=== PATIENT | male | born 1935 | race Caucasian/White ===

== ENCOUNTER 2016-06-20 14:07 | Outpatient (CLI) | payer MEDICARE, OTHER | END 2016-06-20 14:08 | disposition home or self-care (01) | DX: I48.91 Unspecified atrial fibrillation (principal) ==

== ENCOUNTER 2016-07-07 12:30 | Outpatient (CLI) | payer MEDICARE, OTHER | END 2016-07-07 12:31 | disposition home or self-care (01) | DX: I48.91 Unspecified atrial fibrillation (principal) ==

== ENCOUNTER 2016-07-21 21:33 | Outpatient (CLI) | payer MEDICARE, OTHER | END 2016-07-21 21:34 | disposition home or self-care (01) | DX: I48.91 Unspecified atrial fibrillation (principal) ==

== ENCOUNTER 2016-08-02 14:16 | Outpatient (CLI) | payer MEDICARE, OTHER | END 2016-08-02 14:17 | disposition home or self-care (01) | DX: I48.91 Unspecified atrial fibrillation (principal) ==

== ENCOUNTER 2016-08-14 07:29 | Outpatient (CLI) | payer MEDICARE, OTHER | END 2016-08-14 07:30 | disposition home or self-care (01) | DX: I48.91 Unspecified atrial fibrillation (principal) ==

== ENCOUNTER 2016-08-16 14:21 | Outpatient (CLI) | payer MEDICARE, OTHER | END 2016-08-16 14:22 | disposition home or self-care (01) | DX: I48.91 Unspecified atrial fibrillation (principal) ==

== ENCOUNTER 2016-08-28 08:32 | Outpatient (CLI) | payer MEDICARE, OTHER | END 2016-08-28 08:33 | disposition home or self-care (01) | DX: I48.91 Unspecified atrial fibrillation (principal); I48.0 Paroxysmal atrial fibrillation ==

== ENCOUNTER 2016-09-01 13:49 | Outpatient (CLI) | payer MEDICARE, OTHER | END 2016-09-01 13:50 | disposition home or self-care (01) | DX: I48.91 Unspecified atrial fibrillation (principal) ==

== ENCOUNTER 2016-09-06 10:07 | Outpatient (CLI) | payer MEDICARE, OTHER | END 2016-09-06 10:08 | disposition home or self-care (01) | DX: I48.91 Unspecified atrial fibrillation (principal) ==

== ENCOUNTER 2016-10-06 14:41 | Outpatient (CLI) | payer MEDICARE, OTHER | END 2016-10-06 14:42 | disposition home or self-care (01) | DX: I48.91 Unspecified atrial fibrillation (principal) ==

== ENCOUNTER 2016-10-27 08:18 | Outpatient (CLI) | payer MEDICARE, OTHER | END 2016-10-27 08:19 | disposition home or self-care (01) | LOC: LAB.F 08:18 | PROVIDERS: ATTEND Pharmacist Pharmacist Clinician (PhC)/ Clinical Pharmacy Specialist | DX: I48.91 Unspecified atrial fibrillation (principal) | CPT/HCPCS: 85610 ==

== ENCOUNTER 2016-11-08 09:43 | Outpatient (CLI) | payer MEDICARE, OTHER | END 2016-11-08 09:44 | disposition home or self-care (01) | LOC: LAB.F 09:43 | PROVIDERS: ATTEND Pharmacist Pharmacist Clinician (PhC)/ Clinical Pharmacy Specialist | DX: I48.91 Unspecified atrial fibrillation (principal) | CPT/HCPCS: 85610 ==

== ENCOUNTER 2016-11-21 09:16 | Outpatient (CLI) | payer MEDICARE, OTHER | END 2016-11-21 09:17 | disposition home or self-care (01) | LOC: LAB.F 09:16 | PROVIDERS: ATTEND Pharmacist Pharmacist Clinician (PhC)/ Clinical Pharmacy Specialist | DX: I48.91 Unspecified atrial fibrillation (principal) | CPT/HCPCS: 85610 ==

== ENCOUNTER 2016-12-07 10:06 | Outpatient (CLI) | payer MEDICARE, OTHER | END 2016-12-07 10:07 | disposition home or self-care (01) | LOC: LAB.F 10:06 | PROVIDERS: ATTEND Pharmacist Pharmacist Clinician (PhC)/ Clinical Pharmacy Specialist | DX: I48.91 Unspecified atrial fibrillation (principal) | CPT/HCPCS: 85610 ==

== ENCOUNTER 2016-12-22 08:33 | Outpatient (CLI) | payer MEDICARE, OTHER | END 2016-12-22 08:34 | disposition home or self-care (01) | LOC: LAB.F 08:33 | PROVIDERS: ATTEND Pharmacist Pharmacist Clinician (PhC)/ Clinical Pharmacy Specialist | DX: I48.91 Unspecified atrial fibrillation (principal) | CPT/HCPCS: 85610 ==

== ENCOUNTER → 2017-01-10 | Outpatient (CLI) | payer MEDICARE, OTHER | LOC: LAB.F 08:00 | PROVIDERS: ATTEND Pharmacist Pharmacist Clinician (PhC)/ Clinical Pharmacy Specialist | DX: I48.91 Unspecified atrial fibrillation (principal) | CPT/HCPCS: 85610 ==

== ENCOUNTER 2017-02-21 14:38 | Outpatient (CLI) | payer MEDICARE, OTHER | END 2017-02-21 14:39 | disposition home or self-care (01) | LOC: LAB.F 14:38 | PROVIDERS: ATTEND Pharmacist Pharmacist Clinician (PhC)/ Clinical Pharmacy Specialist | DX: I48.91 Unspecified atrial fibrillation (principal) | CPT/HCPCS: 85610 ==

== ENCOUNTER 2017-03-08 07:30 | Outpatient (CLI) | payer MEDICARE, OTHER | END 2017-03-08 07:31 | disposition home or self-care (01) | LOC: LAB.F 07:30 | PROVIDERS: ATTEND Pharmacist Pharmacist Clinician (PhC)/ Clinical Pharmacy Specialist | DX: I48.91 Unspecified atrial fibrillation (principal) | CPT/HCPCS: 85610 ==

== ENCOUNTER 2017-03-23 09:48 | Outpatient (CLI) | payer MEDICARE, OTHER | END 2017-03-23 09:49 | disposition home or self-care (01) | LOC: LAB.F 09:48 | PROVIDERS: ATTEND Pharmacist Pharmacist Clinician (PhC)/ Clinical Pharmacy Specialist | DX: I48.91 Unspecified atrial fibrillation (principal) | CPT/HCPCS: 85610 ==

== ENCOUNTER 2017-04-23 14:59 | Outpatient (CLI) | payer MEDICARE, OTHER | END 2017-04-23 15:00 | disposition home or self-care (01) | LOC: LAB.F 14:59 | PROVIDERS: ATTEND Pharmacist Pharmacist Clinician (PhC)/ Clinical Pharmacy Specialist | DX: I48.91 Unspecified atrial fibrillation (principal) | CPT/HCPCS: 85610 ==

== ENCOUNTER 2017-05-14 14:32 | Outpatient (CLI) | payer MEDICARE, OTHER | END 2017-05-14 14:33 | disposition home or self-care (01) | LOC: LAB.F 14:32 | PROVIDERS: ATTEND Pharmacist Pharmacist Clinician (PhC)/ Clinical Pharmacy Specialist | DX: I48.91 Unspecified atrial fibrillation (principal) | CPT/HCPCS: 85610 ==

== ENCOUNTER 2017-05-29 14:43 | Outpatient (CLI) | payer MEDICARE, OTHER | END 2017-05-29 14:44 | disposition home or self-care (01) | LOC: LAB.F 14:43 | PROVIDERS: ATTEND Pharmacist Pharmacist Clinician (PhC)/ Clinical Pharmacy Specialist | DX: I48.91 Unspecified atrial fibrillation (principal) | CPT/HCPCS: 85610 ==

== ENCOUNTER 2017-06-14 15:28 | Outpatient (CLI) | payer MEDICARE, OTHER | END 2017-06-14 15:29 | disposition home or self-care (01) | LOC: LAB.F 15:28 | PROVIDERS: ATTEND Pharmacist Pharmacist Clinician (PhC)/ Clinical Pharmacy Specialist | DX: I48.91 Unspecified atrial fibrillation (principal) | CPT/HCPCS: 85610 ==

== ENCOUNTER 2017-06-26 11:13 | Outpatient (CLI) | payer MEDICARE, OTHER | END 2017-06-26 11:14 | disposition home or self-care (01) | LOC: LAB.F 11:13 | PROVIDERS: ATTEND Nurse Practitioner | DX: I48.91 Unspecified atrial fibrillation (principal) | CPT/HCPCS: 85610 ==

== ENCOUNTER 2017-07-24 08:00 | Outpatient (CLI) | payer MEDICARE, OTHER | END 2017-07-24 08:01 | disposition home or self-care (01) | LOC: LAB.F 08:00 | PROVIDERS: ATTEND Pharmacist Pharmacist Clinician (PhC)/ Clinical Pharmacy Specialist | DX: I48.91 Unspecified atrial fibrillation (principal) | CPT/HCPCS: 85610 ==

== ENCOUNTER 2017-08-23 14:44 | Outpatient (CLI) | payer MEDICARE, OTHER ==
[2017-08-23 17:54] LABS: T4 (THYROXINE) 7.02 ug/dL (6.09-12.23)
[2017-08-23 17:58] LABS: THYROID STIMULATING HORMONE 0.54 uIU/mL (0.34-5.60)
[2017-08-23 18:03] LABS: FREE T4 (FREE THYROXINE) 1.2 ng/dL (0.58-1.64)
== END 2017-08-23 14:45 | disposition home or self-care (01) ==
LOC: LAB.F 14:44
PROVIDERS: ATTEND Nurse Practitioner Family
DX: R53.83 Other fatigue (principal)
CPT/HCPCS: 36415; 84436; 84439; 84443; 84481; 84482; 86376; 86800

== ENCOUNTER 2017-09-05 14:34 | Outpatient (CLI) | payer MEDICARE, OTHER | END 2017-09-05 14:35 | disposition home or self-care (01) | LOC: LAB.F 14:34 | PROVIDERS: ATTEND Pharmacist Pharmacist Clinician (PhC)/ Clinical Pharmacy Specialist | DX: I48.91 Unspecified atrial fibrillation (principal) | CPT/HCPCS: 85610 ==

== ENCOUNTER 2017-10-04 08:00 | Outpatient (CLI) | payer MEDICARE, OTHER | END 2017-10-04 08:01 | disposition home or self-care (01) | LOC: LAB.F 08:00 | PROVIDERS: ATTEND Pharmacist Pharmacist Clinician (PhC)/ Clinical Pharmacy Specialist | DX: I48.91 Unspecified atrial fibrillation (principal) | CPT/HCPCS: 85610 ==

== ENCOUNTER 2017-11-01 08:00 | Outpatient (CLI) | payer MEDICARE, OTHER | END 2017-11-01 08:01 | disposition home or self-care (01) | LOC: LAB.F 08:00 | PROVIDERS: ATTEND Pharmacist Pharmacist Clinician (PhC)/ Clinical Pharmacy Specialist | DX: I48.91 Unspecified atrial fibrillation (principal) | CPT/HCPCS: 85610 ==

== ENCOUNTER 2017-11-29 08:00 | Outpatient (CLI) | payer MEDICARE, OTHER | END 2017-11-29 08:01 | disposition home or self-care (01) | LOC: LAB.F 08:00 | PROVIDERS: ATTEND Pharmacist Pharmacist Clinician (PhC)/ Clinical Pharmacy Specialist | DX: I48.91 Unspecified atrial fibrillation (principal) | CPT/HCPCS: 85610 ==

== ENCOUNTER 2017-12-31 13:18 | Outpatient (CLI) | payer MEDICARE, OTHER | END 2017-12-31 13:19 | disposition home or self-care (01) | LOC: LAB.F 13:18 | PROVIDERS: ATTEND Pharmacist Pharmacist Clinician (PhC)/ Clinical Pharmacy Specialist | DX: I48.91 Unspecified atrial fibrillation (principal) | CPT/HCPCS: 85610 ==

== ENCOUNTER 2018-01-29 15:37 | Outpatient (CLI) | payer MEDICARE, OTHER | END 2018-01-29 15:38 | LOC: LAB.F 15:37 | PROVIDERS: ATTEND Pharmacist Pharmacist Clinician (PhC)/ Clinical Pharmacy Specialist | DX: I48.91 Unspecified atrial fibrillation (principal) | CPT/HCPCS: 85610 ==

== ENCOUNTER 2018-03-07 13:25 | Outpatient (CLI) | payer MEDICARE, OTHER | END 2018-03-07 13:26 | disposition home or self-care (01) | LOC: LAB.F 13:25 | PROVIDERS: ATTEND Pharmacist Pharmacist Clinician (PhC)/ Clinical Pharmacy Specialist | DX: I48.91 Unspecified atrial fibrillation (principal) | CPT/HCPCS: 85610 ==

== ENCOUNTER 2018-03-29 11:08 | Outpatient (CLI) | payer MEDICARE, OTHER | END 2018-03-29 11:09 | disposition home or self-care (01) | LOC: LAB.F 11:08 | PROVIDERS: ATTEND Pharmacist Pharmacist Clinician (PhC)/ Clinical Pharmacy Specialist | DX: I48.91 Unspecified atrial fibrillation (principal) | CPT/HCPCS: 85610 ==

== ENCOUNTER 2018-04-19 11:04 | Outpatient (CLI) | payer MEDICARE, OTHER | END 2018-04-19 11:05 | disposition home or self-care (01) | LOC: LAB.F 11:04 | PROVIDERS: ATTEND Pharmacist Pharmacist Clinician (PhC)/ Clinical Pharmacy Specialist | DX: I48.91 Unspecified atrial fibrillation (principal) | CPT/HCPCS: 85610 ==

== ENCOUNTER 2018-05-22 14:17 | Outpatient (CLI) | payer MEDICARE, OTHER | END 2018-05-22 14:18 | disposition home or self-care (01) | LOC: LAB.F 14:17 | PROVIDERS: ATTEND Pharmacist Pharmacist Clinician (PhC)/ Clinical Pharmacy Specialist | DX: I48.91 Unspecified atrial fibrillation (principal) | CPT/HCPCS: 85610 ==

== ENCOUNTER 2018-07-04 12:22 | Outpatient (CLI) | payer MEDICARE, OTHER | END 2018-07-04 12:23 | disposition home or self-care (01) | LOC: LAB.F 12:22 | PROVIDERS: ATTEND Pharmacist Pharmacist Clinician (PhC)/ Clinical Pharmacy Specialist | DX: I48.91 Unspecified atrial fibrillation (principal) | CPT/HCPCS: 85610 ==

== ENCOUNTER 2018-08-26 11:03 | Outpatient (CLI) | payer MEDICARE, OTHER | END 2018-08-26 11:04 | disposition home or self-care (01) | LOC: LAB.F 11:03 | PROVIDERS: ATTEND Pharmacist Pharmacist Clinician (PhC)/ Clinical Pharmacy Specialist | DX: I48.91 Unspecified atrial fibrillation (principal) | CPT/HCPCS: 85610 ==

== ENCOUNTER 2018-09-10 14:39 | Outpatient (CLI) | payer MEDICARE, OTHER | END 2018-09-10 14:40 | disposition home or self-care (01) | LOC: LAB.F 14:39 | PROVIDERS: ATTEND Pharmacist Pharmacist Clinician (PhC)/ Clinical Pharmacy Specialist | DX: I48.91 Unspecified atrial fibrillation (principal) | CPT/HCPCS: 85610 ==

== ENCOUNTER 2018-10-03 09:57 | Outpatient (CLI) | payer MEDICARE, OTHER | END 2018-10-03 09:58 | disposition home or self-care (01) | LOC: LAB.F 09:57 | PROVIDERS: ATTEND Pharmacist Pharmacist Clinician (PhC)/ Clinical Pharmacy Specialist | DX: I48.91 Unspecified atrial fibrillation (principal) | CPT/HCPCS: 85610 ==

== ENCOUNTER 2018-11-01 08:58 | Outpatient (CLI) | payer MEDICARE, OTHER | END 2018-11-01 08:59 | disposition home or self-care (01) | LOC: LAB.F 08:58 | PROVIDERS: ATTEND Pharmacist Pharmacist Clinician (PhC)/ Clinical Pharmacy Specialist | DX: I48.91 Unspecified atrial fibrillation (principal) | CPT/HCPCS: 85610 ==

== ENCOUNTER 2018-11-21 08:00 | Outpatient (CLI) | payer MEDICARE, OTHER | END 2018-11-21 23:59 | disposition home or self-care (01) | LOC: LAB.F 08:00 | PROVIDERS: ATTEND Pharmacist Pharmacist Clinician (PhC)/ Clinical Pharmacy Specialist | DX: I48.91 Unspecified atrial fibrillation (principal) | CPT/HCPCS: 85610 ==

== ENCOUNTER 2018-12-20 10:15 | Outpatient (CLI) | payer MEDICARE, OTHER | END 2018-12-20 10:16 | disposition home or self-care (01) | LOC: LAB.S 10:15 | PROVIDERS: ATTEND Pharmacist Pharmacist Clinician (PhC)/ Clinical Pharmacy Specialist | DX: I48.91 Unspecified atrial fibrillation (principal) | CPT/HCPCS: 85610 ==

== ENCOUNTER 2019-01-17 13:49 | Outpatient (CLI) | payer MEDICARE, OTHER | END 2019-01-17 13:50 | disposition home or self-care (01) | LOC: LAB.S 13:49 | PROVIDERS: ATTEND Pharmacist Pharmacist Clinician (PhC)/ Clinical Pharmacy Specialist | DX: I48.91 Unspecified atrial fibrillation (principal) | CPT/HCPCS: 85610 ==

== ENCOUNTER 2019-02-06 07:31 | Outpatient (CLI) | payer MEDICARE, OTHER ==
[2019-02-06 14:35] LABS: ALBUMIN 4.4 g/dL (3.2-5.5); ALBUMIN/GLOBULIN RATIO 1.7 (1.0-2.2); ALKALINE PHOSPHATASE 59 IU/L (42-121); ALT ALANINE AMINOTRANSFERASE 11 IU/L (10-60); AST ASPARTATE AMINOTRANSFERASE 20 IU/L (10-42); BUN - BLOOD UREA NITROGEN 25 mg/dL (6-20); CALCIUM 9.8 mg/dL (8.5-10.3); CARBON DIOXIDE - CO2 28 mmol/L (21-32); CHLORIDE 101 mmol/L (101-111); CHOL/HDL RATIO 4.1 (<5.0); CHOLESTEROL 205 mg/dL; GFR - MDRD 71 (>89); GLUCOSE 176 mg/dL (70-100); HDL CHOLESTEROL 50 mg/dL; LDL CHOLESTEROL,CALCULATED 136 mg/dL; LDL/HDL RATIO 2.7 (<3.6); SODIUM 138 mmol/L (135-145); VLDL CHOLESTEROL 19 mg/dL
== END 2019-02-06 07:32 | disposition home or self-care (01) ==
LOC: LAB.S 07:31
PROVIDERS: ATTEND Internal Medicine
DX: E78.5 Hyperlipidemia, unspecified (principal)
CPT/HCPCS: 36415; 80053; 80061; 83721

== ENCOUNTER 2019-02-25 11:56 | Outpatient (CLI) | payer MEDICARE, OTHER | END 2019-02-25 11:57 | disposition home or self-care (01) | LOC: LAB.S 11:56 | PROVIDERS: ATTEND Pharmacist Pharmacist Clinician (PhC)/ Clinical Pharmacy Specialist | DX: I48.91 Unspecified atrial fibrillation (principal) | CPT/HCPCS: 85610 ==

== ENCOUNTER 2019-04-09 15:35 | Outpatient (CLI) | payer MEDICARE, OTHER | END 2019-04-09 15:36 | disposition home or self-care (01) | LOC: LAB.S 15:35 | PROVIDERS: ATTEND Pharmacist Pharmacist Clinician (PhC)/ Clinical Pharmacy Specialist | DX: I48.91 Unspecified atrial fibrillation (principal) | CPT/HCPCS: 85610 ==

== ENCOUNTER 2019-06-18 12:51 | Emergency (ER) | payer MEDICARE, OTHER ==
--- NOTE | 2019-06-18 13:02 | ED Physician Documentation ---
PD HPI HEENT - Stated complaint Stated Complaint: NOSE BLEED - History obtained from History obtained from: Patient - History of Present Illness Timing - onset: How many hours ago (4), Today Timing - duration: Hours (4) Timing - details: Abrupt onset (he denies recent uri nor injury of nose. Sneezed this morning and had onset of nosebleed left nostril.), Still present (despite pinching nose at home) Location: Nose Improves: Other (lessened with pinching nose but still some dribble and then bleeds with release of pressure.) Associated symptoms: No: Fever, Congestion, Swollen nodes, Cough Similar symptoms before: No diagnosis (he says will have brief bleeding of nose with sneezing nor blowing, but would stop in few minutes with pinching. No prolonged bleeding like this.) Recently seen: Not recently seen (last INR was about 1 1/2 months ago) Review of Systems Constitutional: denies: Fever Nose: denies: Rhinorrhea / runny nose, Congestion Throat: denies: Sore throat Respiratory: denies: Cough Endocrine: reports: Easy bruising / bleeding. denies: Weight loss PD PAST MEDICAL HISTORY - Past Medical History Cardiovascular: Hypertension, High cholesterol, Atrial fibrillation - Past Surgical History Past Surgical History: Yes General: Appendectomy Cardiovascular: Coronary stent - Present Medications Home Medications: Ambulatory Orders Medication Instructions Recorded Confirmed Aspirin 81 mg PO 07/16/13 04/05/15 Atorvastatin [Lipitor] 20 DAILY 07/16/13 04/05/15 Hydrochlorothiazide 12.5 mg PO DAILY 07/16/13 04/05/15 Metoprolol Tartrate [Lopressor] 25 mg PO DAILY 07/16/13 04/05/15 Ramipril 10 mg PO BID 07/16/13 04/05/15 Metformin HCl 500 mg PO BID 04/05/15 04/05/15 Warfarin Sodium 04/05/15 04/05/15 - Allergies Allergies/Adverse Reactions: Allergies Allergy/AdvReac Type Severity Reaction Status Date / Time No Known Drug Allergies Allergy Verified 07/16/13 10:07 - Social History Does the pt smoke?: No Smoking Status: Never smoker Does the pt have substance abuse?: No PD ED PE NORMAL - Vitals Vital signs reviewed: Yes - General General: Alert and oriented X 3, Well developed/nourished, Other (pinching nose but having dribble blood left nostril ) - HEENT HEENT: Moist mucous membranes, Pharynx benign, Other (left nostril with dribbling blood, with bleeding source mid anterior medial wall. ) - Neck Neck: Supple, no meningeal sign, No adenopathy - Cardiac Cardiac: RRR, No murmur - Respiratory Respiratory: Clear bilaterally - Abdomen Abdomen: Soft, Non tender - Derm Derm: Normal color, Warm and dry - Neuro Neuro: Alert and oriented X 3, No motor deficit, Normal speech Results - Vitals Vitals: Vital Signs - 24 hr 06/18/19 06/18/19 12:55 13:12 Temperature 36.9 C 36.7 C Heart Rate 97 106 H Respiratory 18 18 Rate Blood Pressure 163/93 H 134/110 H O2 Saturation 100 97 Oxygen O2 Source Room air - Labs Labs: Laboratory Tests 06/18/19 06/18/19 06/18/19 13:25 13:25 13:25 WBC 9.2 RBC 4.15 L Hgb 12.6 L Hct 38.4 L MCV 92.5 MCH 30.4 MCHC 32.8 RDW 12.5 Plt Count 292 MPV 9.4 Neut # (Auto) 7.0 H Lymph # (Auto) 1.1 L [place] # (Auto) 0.8 Eos # (Auto) 0.1 Baso # (Auto) 0.1 Absolute Nucleated RBC 0.00 Nucleated RBC % 0.0 PT 65.7 H INR 6.4 H* Sodium 137 Potassium 4.1 Chloride 101 Carbon Dioxide 26 Anion Gap 10.0 BUN 29 H Creatinine 1.0 Estimated GFR (MDRD) 71 L Glucose 272 H Calcium 10.0 Magnesium 1.5 L Total Bilirubin 1.0 AST 26 ALT 24 Alkaline Phosphatase 65 Total Protein 7.3 Albumin 4.5 Globulin 2.8 Albumin/Globulin Ratio 1.6 Lipase 28 Procedures - Epistaxis Site: Left, Anterior Preparation: Clots removed, Afrin, Lidocaine, Clamp / pressure applied, Other (TXA) Treatment: Silver Nitrate, Packing inserted Other: Observed - no bleeding, Pt tolerated well, O2 sat WNL. No: Antibiotics prescribed PD MEDICAL DECISION MAKING - ED course Complexity details: reviewed results, considered differential, d/w patient Departure - Departure Disposition: 01 Home, Self Care Clinical Impression: Left-sided nosebleed, FPC (current) use of anticoagulants, Supratherapeutic international normalized ratio (INR) Condition: Stable Record reviewed to determine appropriate education?: Yes Instructions: ED Nasal Packing Anterior Removable Follow-Up: Wilfredo Hawk MD [Primary Care Provider] - Comments: Leave the packing in the left nostril for 2 days if possible. Return in 2 days for recheck and packing removal and a recheck of your INR. Your INR/Coumadin level was overly elevated at 6. Hold it today and tomorrow. We will recheck it in 2 days. Today every few hours, spray a couple of sprays of the Afrin spray onto the foam packing to re-saturated it. Pinch her nose if you have some bleeding. Return if consistent bleeding. Discharge Date/Time: 06/18/19 15:13
[2019-06-18] MEDS ORDERED: SODIUM CHLORIDE 0.9% 500 ML IV ONE (13:11)
[2019-06-18] MEDS ORDERED: OXYMETAZOLINE HCL 100 SPRAYS BOTTLE NAS STA (13:12)
[2019-06-18] MEDS ORDERED: TRANEXAMIC ACID 1,000 MG/10 ML VIAL NAS STA (13:12)
[2019-06-18 13:43] LABS: BASOPHILS # (AUTO) 0.1 10^3/uL (0.0-0.1); BASOPHILS % (AUTO) 0.5 %; EOSINOPHILS # (AUTO) 0.1 10^3/uL (0.0-0.7); EOSINOPHILS % (AUTO) 1.1 %; HGB - HEMOGLOBIN 12.6 g/dL (14.0-18.0); LYMPHOCYTES # (AUTO) 1.1 10^3/uL (1.5-3.5); LYMPHOCYTES % (AUTO) 11.9 %; MEAN CORPUSCULAR HEMOGLOBIN 30.4 pg (27.0-31.0); MEAN CORPUSCULAR HGB CONC 32.8 g/dL (32.0-36.0); MEAN CORPUSCULAR VOLUME 92.5 fL (80.0-94.0); MEAN PLATELET VOLUME 9.4 fL (7.4-11.4); MONOCYTES # (AUTO) 0.8 10^3/uL (0.0-1.0); MONOCYTES % (AUTO) 9.1 %; NEUTROPHILS % (AUTO) 76.6 %; PLT - PLATELET COUNT 292 10^3/uL (130-450); RED BLOOD COUNT 4.15 10^6/uL (4.70-6.10); RED CELL DISTRIBUTION WIDTH 12.5 % (12.0-15.0); WHITE BLOOD COUNT 9.2 x10^3/uL (4.8-10.8)
[2019-06-18 14:01] LABS: INR 6.4 (0.8-1.2); PT - PROTHROMBIN TIME 65.7 secs (9.9-12.6)
[2019-06-18 14:03] LABS: ALBUMIN 4.5 g/dL (3.2-5.5); ALBUMIN/GLOBULIN RATIO 1.6 (1.0-2.2); MAGNESIUM 1.5 mg/dL (1.7-2.8); TOTAL PROTEIN 7.3 g/dL (6.7-8.2)
[2019-06-18] MEDS ORDERED: CHERRY SYRUP 10 ML UDC PO ONE (14:03)
[2019-06-18] MEDS ORDERED: PHYTONADIONE 10 MG/ML AMP PO ONE (14:03)
[2019-06-18 14:59] VITALS: BP 134/110
== END 2019-06-18 15:13 | disposition home or self-care (01) ==
LOC: ED 12:51
DX: R04.0 Epistaxis (principal); R79.1 Abnormal coagulation profile; Z79.01 Long term (current) use of anticoagulants; Z79.82 Long term (current) use of aspirin; I48.91 Unspecified atrial fibrillation; I10 Essential (primary) hypertension
CPT/HCPCS: 30901; 36415; 80053; 83690; 83735; 85025; 85610; 96360; 99283; 99284; A9270

== ENCOUNTER 2019-06-19 14:38 | Outpatient (CLI) | payer MEDICARE, OTHER | END 2019-06-19 14:39 | disposition home or self-care (01) | LOC: LAB.S 14:38 | PROVIDERS: ATTEND Pharmacist Pharmacist Clinician (PhC)/ Clinical Pharmacy Specialist | DX: I48.91 Unspecified atrial fibrillation (principal) | CPT/HCPCS: 85610 ==

== ENCOUNTER 2019-06-20 09:57 | Emergency (ER) | payer MEDICARE, OTHER ==
[2019-06-20 10:12] VITALS: BP 138/77
--- NOTE | 2019-06-20 11:38 | ED Physician Documentation ---
History of Present Illness - Stated complaint Stated Complaint: ED FOLLOW UP - Chief complaint Chief Complaint: Heent - History obtained from History obtained from: Patient, Family - History of Present Illness Timing: How many days ago (2) - Additonal information Additional information: 84-year-old male was seen in the emergency department 2 days ago with an INR of 6.4 and a bloody nose. He was given a dose of vitamin K and he has discontinued his Coumadin he did take a dose last night.He has no complaints as far as his nose bleeding he is here for removal of the packing. Review of Systems Constitutional: denies: Fever Eyes: denies: Decreased vision Ears: denies: Ear pain Nose: reports: Epistaxis (resolved). denies: Rhinorrhea / runny nose Throat: denies: Sore throat Cardiac: denies: Chest pain / pressure Respiratory: denies: Cough GI: denies: Vomiting PD PAST MEDICAL HISTORY - Past Medical History Past Medical History: Yes Cardiovascular: Hypertension, High cholesterol, Atrial fibrillation - Past Surgical History Past Surgical History: Yes General: Appendectomy Cardiovascular: Coronary stent - Present Medications Home Medications: Ambulatory Orders Medication Instructions Recorded Confirmed Aspirin 81 mg PO 07/16/13 04/05/15 Atorvastatin [Lipitor] 20 DAILY 07/16/13 04/05/15 Hydrochlorothiazide 12.5 mg PO DAILY 07/16/13 04/05/15 Metoprolol Tartrate [Lopressor] 25 mg PO DAILY 07/16/13 04/05/15 Ramipril 10 mg PO BID 07/16/13 04/05/15 Metformin HCl 500 mg PO BID 04/05/15 04/05/15 Warfarin Sodium 04/05/15 04/05/15 - Allergies Allergies/Adverse Reactions: Allergies Allergy/AdvReac Type Severity Reaction Status Date / Time No Known Drug Allergies Allergy Verified 06/20/19 10:12 - Social History Does the pt smoke?: No Smoking Status: Never smoker Does the pt have substance abuse?: No PD ED PE NORMAL - Vitals Vital signs reviewed: Yes (hypertensive ) - General General: Alert and oriented X 3, No acute distress, Well developed/nourished - HEENT HEENT: Atraumatic, PERRL, Other (no bleeding from the left nares after packing removal. 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, No motor deficit, No sensory deficit, Normal speech Eye Opening: Spontaneous Motor: Obeys Commands Verbal: Oriented GCS Score: 15 - Psych Psych: Normal mood, Normal affect Results - Vitals Vitals: Vital Signs - 24 hr 06/20/19 10:09 Temperature 36.8 C Heart Rate 109 H Respiratory 17 Rate Blood Pressure 138/77 H O2 Saturation 98 Oxygen O2 Source Room air - Labs Labs: Laboratory Tests 06/20/19 11:20 Whole Blood INR 1.3 H PD MEDICAL DECISION MAKING - ED course Complexity details: considered differential, d/w patient, d/w family ED course: 84-year-old male on Coumadin had an elevated INR and a nosebleed he was given a dose of vitamin K is come back 2 days later the packing is removed there is no signs of bleeding his INR is now 1.2 and he is encouraged to start taking his Coumadin regularly. He did take a dose last night. Departure - Departure Disposition: 01 Home, Self Care Clinical Impression: Left-sided nosebleed Condition: Stable Instructions: ED Nosebleed Follow-Up: Wilfredo Hawk MD [Primary Care Provider] -
== END 2019-06-20 11:50 | disposition home or self-care (01) ==
LOC: ED 09:57
DX: R04.0 Epistaxis (principal); Z48.00 Encounter for change or removal of nonsurgical wound dressing; Z79.01 Long term (current) use of anticoagulants; Z79.82 Long term (current) use of aspirin; I48.91 Unspecified atrial fibrillation; I10 Essential (primary) hypertension
CPT/HCPCS: 85610; 99281

== ENCOUNTER 2019-06-25 14:50 | Outpatient (CLI) | payer MEDICARE, OTHER | END 2019-06-25 14:51 | disposition home or self-care (01) | LOC: LAB.S 14:50 | PROVIDERS: ATTEND Pharmacist Pharmacist Clinician (PhC)/ Clinical Pharmacy Specialist | DX: I48.91 Unspecified atrial fibrillation (principal) | CPT/HCPCS: 85610 ==

== ENCOUNTER 2019-07-24 11:34 | Outpatient (CLI) | payer MEDICARE, OTHER | END 2019-07-24 11:35 | disposition home or self-care (01) | LOC: LAB.S 11:34 | PROVIDERS: ATTEND Pharmacist Pharmacist Clinician (PhC)/ Clinical Pharmacy Specialist | DX: I48.91 Unspecified atrial fibrillation (principal) | CPT/HCPCS: 85610 ==

== ENCOUNTER 2019-08-12 14:48 | Outpatient (CLI) | payer MEDICARE, OTHER | END 2019-08-12 14:49 | disposition home or self-care (01) | LOC: LAB.S 14:48 | PROVIDERS: ATTEND Pharmacist Pharmacist Clinician (PhC)/ Clinical Pharmacy Specialist | DX: I48.91 Unspecified atrial fibrillation (principal) | CPT/HCPCS: 85610 ==

== ENCOUNTER 2019-10-17 14:44 | Outpatient (CLI) | payer MEDICARE, OTHER | END 2019-10-17 14:45 | disposition home or self-care (01) | LOC: LAB 14:44 | PROVIDERS: ATTEND Pharmacist Pharmacist Clinician (PhC)/ Clinical Pharmacy Specialist | DX: I48.91 Unspecified atrial fibrillation (principal) | CPT/HCPCS: 85610 ==

== ENCOUNTER 2019-10-26 10:23 | Emergency (ER) | payer MEDICARE, OTHER ==
[2019-10-26 10:31] VITALS: BP 151/73
== END 2019-10-26 12:45 | disposition left against medical advice (07) ==
LOC: ED 10:23
DX: Z53.21 Procedure and treatment not carried out due to patient leaving prior to being seen by health care provider (principal)

== ENCOUNTER 2019-10-27 12:59 | Emergency (ER) | payer MEDICARE, OTHER ==
[2019-10-27] MEDS ORDERED: predniSONE 20 MG TABLET PO STA (14:35)
--- NOTE | 2019-10-27 14:38 | ED Physician Documentation ---
History of Present Illness - Stated complaint Stated Complaint: EYE PX - Chief complaint Chief Complaint: Heent - History obtained from History obtained from: Patient - History of Present Illness Timing: How many days ago (2) Pain level max: 2 Pain level now: 1 - Additonal information Additional information: Patient states that he was having psoriasis to his scalp, but a new lotion on his head and now has swelling around the left eye. Believes that he got onto his pillow in the night. The eye is itchy and swollen. No pain. No fevers. Has not taken anything for this. No visual changes. No drainage. Nothing makes it better or worse Review of Systems Constitutional: denies: Fever, Chills Eyes: denies: Loss of vision, Decreased vision, Photophobia Respiratory: denies: Cough GI: denies: Vomiting, Diarrhea Musculoskeletal: denies: Neck pain, Back pain Neurologic: denies: Headache PD PAST MEDICAL HISTORY - Past Medical History Cardiovascular: Hypertension, High cholesterol, Atrial fibrillation - Past Surgical History Past Surgical History: Yes General: Appendectomy Cardiovascular: Coronary stent - Present Medications Home Medications: Ambulatory Orders Medication Instructions Recorded Confirmed Aspirin 81 mg PO 07/16/13 04/05/15 Atorvastatin [Lipitor] 20 DAILY 07/16/13 04/05/15 Hydrochlorothiazide 12.5 mg PO DAILY 07/16/13 04/05/15 Metoprolol Tartrate [Lopressor] 25 mg PO DAILY 07/16/13 04/05/15 Ramipril 10 mg PO BID 07/16/13 04/05/15 Metformin HCl 500 mg PO BID 04/05/15 04/05/15 Warfarin Sodium 04/05/15 04/05/15 predniSONE [Prednisone] 20 mg PO DAILY #4 tablet 10/27/19 - Allergies Allergies/Adverse Reactions: Allergies Allergy/AdvReac Type Severity Reaction Status Date / Time No Known Drug Allergies Allergy Verified 10/27/19 13:12 - Social History Does the pt smoke?: No Smoking Status: Never smoker Does the pt have substance abuse?: No PD ED PE NORMAL - Vitals Vital signs reviewed: Yes - General General: Alert and oriented X 3, No acute distress - HEENT HEENT: PERRL (Normal conjunctiva bilaterally. There is mild swelling to the bilateral eyelids. Light pink in color. Blanches easily. Appears most consistent with an allergic reaction.), EOMI (No pain with extraocular movement.), Moist mucous membranes - Neck Neck: Supple, no meningeal sign - Derm Derm: Warm and dry - Neuro Neuro: Alert and oriented X 3 Results - Vitals Vitals: Vital Signs - 24 hr 10/27/19 13:12 Temperature 37.2 C Heart Rate 92 Respiratory 14 Rate Blood Pressure 140/96 H O2 Saturation 98 Oxygen O2 Source Room air PD MEDICAL DECISION MAKING - ED course Complexity details: considered differential, d/w patient ED course: Patient with what appears to be a mild allergic blepharitis. Will place on a short course of steroids. He is well-appearing, nontoxic. Afebrile. No evidence of infection. Patient counseled regarding signs and symptoms for which I believe and urgent re-evaluation would be necessary. Patient with good understanding of and agreement to plan and is comfortable going home at this time This document was made in part using voice recognition software. While efforts are made to proofread this document, sound alike and grammatical errors may occur. No conjunctival injection or drainage. Eyelids were everted. Departure - Departure Disposition: 01 Home, Self Care Clinical Impression: Blepharitis of left eye Qualifiers: Blepharitis type: unspecified type Eyelid: both upper and lower Qualified Code(s): H01.00B - Unspecified blepharitis left eye, upper and lower eyelids Condition: Good Instructions: ED Inflammation Eyelid Follow-Up: Wilfredo Hawk MD [Primary Care Provider] - Within 3 Days Prescriptions: predniSONE [Prednisone] 20 mg PO DAILY #4 tablet Comments: Use the medications as prescribed. Return if you worsen. Please stop using the psoriasis ointment. This should improve rapidly over the next 24 to 48 hours.
[2019-10-27 14:45] VITALS: BP 128/85
== END 2019-10-27 14:47 | disposition home or self-care (01) ==
LOC: ED 12:59
DX: H01.00B Unspecified blepharitis left eye, upper and lower eyelids (principal); I10 Essential (primary) hypertension
CPT/HCPCS: 99282; 99284; J7512

== ENCOUNTER 2019-12-23 14:27 | Outpatient (CLI) | payer MEDICARE, OTHER | END 2019-12-23 14:28 | disposition home or self-care (01) | LOC: LAB.S 14:27 | PROVIDERS: ATTEND Pharmacist Pharmacist Clinician (PhC)/ Clinical Pharmacy Specialist | DX: I48.91 Unspecified atrial fibrillation (principal) | CPT/HCPCS: 85610 ==

== ENCOUNTER 2020-01-14 15:44 | Outpatient (CLI) | payer MEDICARE, OTHER | END 2020-01-14 15:45 | disposition home or self-care (01) | LOC: LAB.S 15:44 | PROVIDERS: ATTEND Pharmacist Pharmacist Clinician (PhC)/ Clinical Pharmacy Specialist | DX: I48.91 Unspecified atrial fibrillation (principal) | CPT/HCPCS: 85610 ==

== ENCOUNTER 2020-02-12 15:54 | Outpatient (CLI) | payer MEDICARE, OTHER | END 2020-02-12 15:55 | disposition home or self-care (01) | LOC: LAB.S 15:54 | PROVIDERS: ATTEND Pharmacist Pharmacist Clinician (PhC)/ Clinical Pharmacy Specialist | DX: I48.91 Unspecified atrial fibrillation (principal) | CPT/HCPCS: 85610 ==

== ENCOUNTER 2020-03-25 15:38 | Outpatient (CLI) | payer MEDICARE, OTHER | END 2020-03-25 15:39 | disposition home or self-care (01) | LOC: LAB.S 15:38 | PROVIDERS: ATTEND Pharmacist Pharmacist Clinician (PhC)/ Clinical Pharmacy Specialist | DX: I48.91 Unspecified atrial fibrillation (principal) | CPT/HCPCS: 85610 ==

== ENCOUNTER 2020-05-08 11:33 | Outpatient (CLI) | payer MEDICARE, OTHER | END 2020-05-08 11:34 | disposition home or self-care (01) | LOC: LAB.S 11:33 | PROVIDERS: ATTEND Internal Medicine | DX: I48.91 Unspecified atrial fibrillation (principal) | CPT/HCPCS: 85610 ==

== ENCOUNTER 2020-07-20 11:45 | Outpatient (CLI) | payer MEDICARE, OTHER ==
[2020-07-20 15:10] LABS: INR 1.7 (0.8-1.2); PT - PROTHROMBIN TIME 18.1 secs (9.9-12.6)
[2020-07-20 15:19] LABS: ALBUMIN 4.4 g/dL (3.2-5.5); ALKALINE PHOSPHATASE 64 IU/L (42-121); ALT ALANINE AMINOTRANSFERASE 17 IU/L (10-60); AST ASPARTATE AMINOTRANSFERASE 18 IU/L (10-42); BILIRUBIN,TOTAL 1.2 mg/dL (0.2-1.0); BUN - BLOOD UREA NITROGEN 27 mg/dL (6-20); CARBON DIOXIDE - CO2 25 mmol/L (21-32); CHLORIDE 94 mmol/L (101-111); CHOL/HDL RATIO 4.2 (<5.0); CHOLESTEROL 229 mg/dL; CREATININE 1.1 mg/dL (0.6-1.2); GLUCOSE 326 mg/dL (70-100); HDL CHOLESTEROL 54 mg/dL; LDL CHOLESTEROL,CALCULATED 142 mg/dL; LDL/HDL RATIO 2.6 (<3.6); TOTAL PROTEIN 6.6 g/dL (6.7-8.2); VLDL CHOLESTEROL 33 mg/dL
[2020-07-20 15:30] LABS: BASOPHILS # (AUTO) 0.1 10^3/uL (0.0-0.1); BASOPHILS % (AUTO) 0.7 %; EOSINOPHILS # (AUTO) 0.1 10^3/uL (0.0-0.7); HGB - HEMOGLOBIN 13.8 g/dL (14.0-18.0); LYMPHOCYTES % (AUTO) 12.9 %; MEAN CORPUSCULAR HEMOGLOBIN 30.8 pg (27.0-31.0); MEAN CORPUSCULAR HGB CONC 32.9 g/dL (32.0-36.0); MEAN CORPUSCULAR VOLUME 93.5 fL (80.0-94.0); MONOCYTES # (AUTO) 0.6 10^3/uL (0.0-1.0); MONOCYTES % (AUTO) 7.9 %; NEUTROPHILS # (AUTO) 6.2 10^3/uL (1.5-6.6); NEUTROPHILS % (AUTO) 76.4 %; PLT - PLATELET COUNT 282 10^3/uL (130-450); RED BLOOD COUNT 4.48 10^6/uL (4.70-6.10); RED CELL DISTRIBUTION WIDTH 12.8 % (12.0-15.0); WHITE BLOOD COUNT 8.1 x10^3/uL (4.8-10.8)
[2020-07-20 15:38] LABS: CRP - C-REACTIVE PROTEIN < 1.0 mg/dL (0-1.0)
[2020-07-20 15:44] LABS: RHEUMATOID FACTOR NEGATIVE (Negative)
[2020-07-20 20:00] LABS: HEMOGLOBIN A1c% 10.2 % (4.27-6.07)
[2020-07-23 08:07] LABS: ANA SCREEN POSITIVE (NEGATIVE)
== END 2020-07-20 11:46 | disposition home or self-care (01) ==
LOC: LAB.S 11:45
PROVIDERS: ATTEND Pharmacist Pharmacist Clinician (PhC)/ Clinical Pharmacy Specialist
DX: I48.91 Unspecified atrial fibrillation (principal); I10 Essential (primary) hypertension; E78.5 Hyperlipidemia, unspecified; E11.9 Type 2 diabetes mellitus without complications; M25.50 Pain in unspecified joint
CPT/HCPCS: 36415; 80053; 80061; 83036; 83721; 85025; 85610; 85651; 86038; 86140; 86430

== ENCOUNTER 2020-09-02 10:29 | Outpatient (CLI) | payer MEDICARE, OTHER | END 2020-09-02 10:30 | disposition home or self-care (01) | LOC: LAB.S 10:29 | PROVIDERS: ATTEND Pharmacist Pharmacist Clinician (PhC)/ Clinical Pharmacy Specialist | DX: I48.91 Unspecified atrial fibrillation (principal) | CPT/HCPCS: 85610 ==

== ENCOUNTER 2020-10-02 10:51 | Outpatient (CLI) | payer MEDICARE, OTHER | END 2020-10-02 10:52 | disposition home or self-care (01) | LOC: LAB.S 10:51 | PROVIDERS: ATTEND Pharmacist Pharmacist Clinician (PhC)/ Clinical Pharmacy Specialist | DX: I48.91 Unspecified atrial fibrillation (principal) | CPT/HCPCS: 36416; 85610 ==

== ENCOUNTER 2020-10-20 14:23 | Outpatient (CLI) | payer MEDICARE, OTHER ==
[2020-10-20 20:47] LABS: INR > 10.0 (0.8-1.2)
[2020-10-21 15:51] LABS: ESTIMATED AVERAGE GLUCOSE 134 mg/dL (70-100); HEMOGLOBIN A1c% 6.3 % (4.27-6.07)
== END 2020-10-20 14:24 | disposition home or self-care (01) ==
LOC: LAB.S 14:23
PROVIDERS: ATTEND Pharmacist Pharmacist Clinician (PhC)/ Clinical Pharmacy Specialist
DX: E11.9 Type 2 diabetes mellitus without complications (principal); I48.91 Unspecified atrial fibrillation
CPT/HCPCS: 36415; 83036; 85610

== ENCOUNTER 2020-11-08 10:33 | Outpatient (CLI) | payer MEDICARE, OTHER | END 2020-11-08 10:34 | disposition home or self-care (01) | LOC: LAB.S 10:33 | PROVIDERS: ATTEND Pharmacist Pharmacist Clinician (PhC)/ Clinical Pharmacy Specialist | DX: I48.91 Unspecified atrial fibrillation (principal) | CPT/HCPCS: 36416; 85610 ==

== ENCOUNTER 2020-11-22 16:28 | Outpatient (CLI) | payer MEDICARE, OTHER | END 2020-11-22 16:29 | disposition home or self-care (01) | LOC: LAB.S 16:28 | PROVIDERS: ATTEND Pharmacist Pharmacist Clinician (PhC)/ Clinical Pharmacy Specialist | DX: I48.91 Unspecified atrial fibrillation (principal) | CPT/HCPCS: 36416; 85610 ==

== ENCOUNTER 2020-12-07 15:56 | Outpatient (CLI) | payer MEDICARE, OTHER | END 2020-12-07 15:57 | disposition home or self-care (01) | LOC: LAB.S 15:56 | PROVIDERS: ATTEND Pharmacist Pharmacist Clinician (PhC)/ Clinical Pharmacy Specialist | DX: I48.91 Unspecified atrial fibrillation (principal) | CPT/HCPCS: 36416; 85610 ==

== ENCOUNTER 2020-12-20 15:53 | Outpatient (CLI) | payer MEDICARE, OTHER | END 2020-12-20 15:54 | disposition home or self-care (01) | LOC: LAB.S 15:53 | PROVIDERS: ATTEND Pharmacist Pharmacist Clinician (PhC)/ Clinical Pharmacy Specialist | DX: I48.91 Unspecified atrial fibrillation (principal) | CPT/HCPCS: 36416; 85610 ==

== ENCOUNTER 2021-01-19 15:41 | Outpatient (CLI) | payer MEDICARE, OTHER | END 2021-01-19 15:42 | disposition home or self-care (01) | LOC: LAB.S 15:41 | PROVIDERS: ATTEND Pharmacist Pharmacist Clinician (PhC)/ Clinical Pharmacy Specialist | DX: I48.91 Unspecified atrial fibrillation (principal) | CPT/HCPCS: 36416; 85610 ==

== ENCOUNTER 2021-02-21 10:36 | Outpatient (CLI) | payer MEDICARE, OTHER | END 2021-02-21 10:37 | disposition home or self-care (01) | LOC: LAB.S 10:36 | PROVIDERS: ATTEND Pharmacist Pharmacist Clinician (PhC)/ Clinical Pharmacy Specialist | DX: I48.91 Unspecified atrial fibrillation (principal) | CPT/HCPCS: 36416; 85610 ==

== ENCOUNTER 2021-03-14 16:07 | Outpatient (CLI) | payer MEDICARE, OTHER | END 2021-03-14 16:08 | disposition home or self-care (01) | LOC: LAB.S 16:07 | PROVIDERS: ATTEND Pharmacist Pharmacist Clinician (PhC)/ Clinical Pharmacy Specialist | DX: I48.91 Unspecified atrial fibrillation (principal) | CPT/HCPCS: 85610 ==

== ENCOUNTER 2021-04-11 11:34 | Outpatient (CLI) | payer MEDICARE, OTHER | END 2021-04-11 11:35 | disposition home or self-care (01) | LOC: LAB.S 11:34 | PROVIDERS: ATTEND Pharmacist Pharmacist Clinician (PhC)/ Clinical Pharmacy Specialist | DX: I48.91 Unspecified atrial fibrillation (principal) | CPT/HCPCS: 36416; 85610 ==

== ENCOUNTER 2021-04-20 16:01 | Outpatient (CLI) | payer MEDICARE, OTHER ==
[2021-04-20 19:50] LABS: BASOPHILS # (AUTO) 0.1 10^3/uL (0.0-0.1); BASOPHILS % (AUTO) 0.8 %; EOSINOPHILS # (AUTO) 0.1 10^3/uL (0.0-0.7); EOSINOPHILS % (AUTO) 1.1 %; HCT - HEMATOCRIT 42.3 % (42.0-52.0); HGB - HEMOGLOBIN 13.5 g/dL (14.0-18.0); LYMPHOCYTES # (AUTO) 0.8 10^3/uL (1.5-3.5); LYMPHOCYTES % (AUTO) 7.5 %; MEAN CORPUSCULAR HEMOGLOBIN 30.5 pg (27.0-31.0); MEAN CORPUSCULAR HGB CONC 31.9 g/dL (32.0-36.0); MEAN CORPUSCULAR VOLUME 95.5 fL (80.0-94.0); MEAN PLATELET VOLUME 10.8 fL (7.4-11.4); MONOCYTES % (AUTO) 9.8 %; NEUTROPHILS # (AUTO) 8.1 10^3/uL (1.5-6.6); NEUTROPHILS % (AUTO) 78.6 %; PLT - PLATELET COUNT 269 10^3/uL (130-450); RED BLOOD COUNT 4.43 10^6/uL (4.70-6.10); RED CELL DISTRIBUTION WIDTH 13.2 % (12.0-15.0); WHITE BLOOD COUNT 10.2 x10^3/uL (4.8-10.8)
[2021-04-20 20:05] LABS: ALBUMIN 4.8 g/dL (3.2-5.5); ALBUMIN/GLOBULIN RATIO 1.8 (1.0-2.2); BILIRUBIN,TOTAL 1.2 mg/dL (0.2-1.0); CALCIUM 10.3 mg/dL (8.5-10.3); CREATININE 0.9 mg/dL (0.6-1.2); POTASSIUM 4.1 mmol/L (3.5-5.0); TOTAL PROTEIN 7.5 g/dL (6.7-8.2)
[2021-04-20 21:02] LABS: ESTIMATED AVERAGE GLUCOSE 126 mg/dL (70-100)
== END 2021-04-20 16:02 | disposition home or self-care (01) ==
LOC: LAB.S 16:01
PROVIDERS: ATTEND Internal Medicine
DX: I10 Essential (primary) hypertension (principal); E11.9 Type 2 diabetes mellitus without complications
CPT/HCPCS: 36415; 80053; 83036; 85025

== ENCOUNTER 2021-06-08 14:41 | Outpatient (CLI) | payer MEDICARE, OTHER | END 2021-06-08 14:42 | disposition home or self-care (01) | LOC: LAB 14:41 | PROVIDERS: ATTEND Pharmacist Pharmacist Clinician (PhC)/ Clinical Pharmacy Specialist | DX: I48.91 Unspecified atrial fibrillation (principal); I10 Essential (primary) hypertension | CPT/HCPCS: 36416; 85610 ==

== ENCOUNTER 2021-07-06 14:33 | Outpatient (CLI) | payer MEDICARE, OTHER | END 2021-07-06 14:34 | disposition home or self-care (01) | LOC: LAB.S 14:33 | PROVIDERS: ATTEND Pharmacist Pharmacist Clinician (PhC)/ Clinical Pharmacy Specialist | DX: I48.91 Unspecified atrial fibrillation (principal) | CPT/HCPCS: 36416; 85610 ==

== ENCOUNTER 2021-07-07 13:04 | Outpatient (CLI) | payer MEDICARE, OTHER ==
--- NOTE | 2021-07-07 16:54 | Ultrasound Report ---
PROCEDURE: Duplex Lwr Ext Arterial Bilat INDICATIONS: PERIPHERAL VASCULAR DISEASE TECHNIQUE: Color and pulse Doppler interrogation was performed of both lower extremity arterial systems, with im age documentation. COMPARISON: None FINDINGS: Right lower extremity: Common femoral artery: 137 cm/sec, with biphasic flow. Deep femoral artery: 104 cm/sec, with monophasic flow. Proximal superficial femoral artery: 89 cm/sec, with biphasic flow. Mid superficial femoral artery: 104 cm/sec, with biphasic flow. Distal superficial femoral artery: 94 cm/sec, with monophasic flow. Popliteal artery: 109 cm/sec, with biphasic flow. Posterior tibial artery: 70 cm/sec, with monophasic flow. Anterior tibial artery/dorsalis pedis: 57 cm/sec, with monophasic flow. Schaefer-scale imaging description: Moderate diffuse plaque Left lower extremity: Common femoral artery: 77 cm/sec, with biphasic flow. Deep femoral artery: 81 cm/sec, with biphasic flow. Proximal superficial femoral artery: 95 cm/sec, with biphasic flow. Mid superficial femoral artery: 77 cm/sec, with monophasic flow. Distal superficial femoral artery: 53 cm/sec, with monophasic flow. Popliteal artery: 57 cm/sec, with monophasic flow. Posterior tibial artery: 211 cm/sec, with monophasic flow. Anterior tibial artery/dorsalis pedis: 77 cm/sec, with phasic flow. 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 Initial f urther assessment with MR angiography runoff evaluation is recommended. Reviewed by: Katerina Thomas MD on 07/07/2021 4:53 PM PST Approved by: Katerina Thomas MD on 07/07/2021 4:53 PM PST Station ID: [id number]
== END 2021-07-07 13:05 | disposition home or self-care (01) ==
LOC: DI 13:04
PROVIDERS: ATTEND Nurse Practitioner
DX: I73.9 Peripheral vascular disease, unspecified (principal); L97.902 Non-pressure chronic ulcer of unspecified part of unspecified lower leg with fat layer exposed; E11.9 Type 2 diabetes mellitus without complications
CPT/HCPCS: 93925

== ENCOUNTER 2021-08-03 11:20 | Outpatient (CLI) | payer MEDICARE, OTHER | END 2021-08-03 11:21 | disposition home or self-care (01) | LOC: LAB.S 11:20 | PROVIDERS: ATTEND Pharmacist Pharmacist Clinician (PhC)/ Clinical Pharmacy Specialist | DX: I48.91 Unspecified atrial fibrillation (principal) | CPT/HCPCS: 36416; 85610 ==

== ENCOUNTER 2021-08-24 11:00 | Outpatient (CLI) | payer MEDICARE, OTHER | END 2021-08-24 11:01 | disposition home or self-care (01) | LOC: LAB.S 11:00 | PROVIDERS: ATTEND Pharmacist Pharmacist Clinician (PhC)/ Clinical Pharmacy Specialist | DX: I48.91 Unspecified atrial fibrillation (principal) | CPT/HCPCS: 36416; 85610 ==

== ENCOUNTER 2021-10-20 09:07 | Outpatient (CLI) | payer MEDICARE, OTHER | END 2021-10-20 09:08 | disposition home or self-care (01) | LOC: LAB.S 09:07 | PROVIDERS: ATTEND Pharmacist Pharmacist Clinician (PhC)/ Clinical Pharmacy Specialist | DX: I48.91 Unspecified atrial fibrillation (principal) | CPT/HCPCS: 36416; 85610 ==

== ENCOUNTER 2021-12-17 21:38 | Outpatient (CLI) | payer MEDICARE, OTHER | END 2021-12-17 21:39 | disposition critical access hospital (66) | LOC: EMS 21:38 | DX: R53.1 Weakness (principal) | CPT/HCPCS: A0425; A0429 ==

== ENCOUNTER 2021-12-17 22:01 | Emergency (ER) | payer MEDICARE, OTHER ==
[2021-12-17 22:38] LABS: BASOPHILS # (AUTO) 0.1 10^3/uL (0.0-0.1); BASOPHILS % (AUTO) 0.8 %; EOSINOPHILS # (AUTO) 0.1 10^3/uL (0.0-0.7); EOSINOPHILS % (AUTO) 1.5 %; HCT - HEMATOCRIT 38.1 % (42.0-52.0); HGB - HEMOGLOBIN 12.9 g/dL (14.0-18.0); LYMPHOCYTES % (AUTO) 11.2 %; MEAN CORPUSCULAR HEMOGLOBIN 30.4 pg (27.0-31.0); MEAN CORPUSCULAR HGB CONC 33.9 g/dL (32.0-36.0); MEAN CORPUSCULAR VOLUME 89.9 fL (80.0-94.0); MEAN PLATELET VOLUME 9.1 fL (7.4-11.4); MONOCYTES # (AUTO) 0.9 10^3/uL (0.0-1.0); MONOCYTES % (AUTO) 10.4 %; NEUTROPHILS # (AUTO) 6.8 10^3/uL (1.5-6.6); NEUTROPHILS % (AUTO) 75.7 %; PLT - PLATELET COUNT 258 10^3/uL (130-450); RED BLOOD COUNT 4.24 10^6/uL (4.70-6.10); RED CELL DISTRIBUTION WIDTH 13.5 % (12.0-15.0)
[2021-12-17 22:43] LABS: INR 3.5 (0.8-1.2); PT - PROTHROMBIN TIME 38.7 secs (9.9-12.6)
[2021-12-17 22:48] LABS: ALBUMIN 4.2 g/dL (3.2-5.5); ALBUMIN/GLOBULIN RATIO 1.7 (1.0-2.2); BILIRUBIN,TOTAL 1.1 mg/dL (0.2-1.0); CREATININE 1.2 mg/dL (0.6-1.2); POTASSIUM 4.3 mmol/L (3.5-5.0); TOTAL PROTEIN 6.7 g/dL (6.7-8.2)
--- NOTE | 2021-12-18 00:07 | XRAY Report ---
PROCEDURE: Chest 2 View X-Ray INDICATIONS: weakness TECHNIQUE: 2 view(s) of the chest. COMPARISON: None. FINDINGS: Surgical changes and devices: None. Lungs and pleura: No pleural effusions or pneumothorax. Lungs are mildly abnormal with a mild inter stitial prominence. Mediastinum: Mediastinal contours are normal. Heart size is at the upper limits of normal. Bones and chest wall: No suspicious bony abnormalities. Soft tissues appear unremarkable. IMPRESSION: Mild interstitial prominence, no definite pneumonia found. Reviewed by: Srinivas Barkley MD on 12/18/2021 12:06 AM PDT Approved by: Srinivas Barkley MD on 12/18/2021 12:06 AM PDT Station ID: [id number]
--- NOTE | 2021-12-18 00:09 | CT Report ---
PROCEDURE: HEAD WO INDICATIONS: weakness TECHNIQUE: Noncontrast 4.5 mm thick angled axial sections acquired from the foramen magnum to the vertex. For r adiation dose reduction, the following was used: automated exposure control, adjustment of mA and/or kV according to patient size. COMPARISON: None. FINDINGS: Image quality: Excellent. CSF spaces: Basal cisterns are patent. No extra-axial fluid collections. Ventricles are normal in size and shape. Brain: No midline shift. No intracranial masses or hemorrhage. Schaefer-white matter interface is norm al. Skull and face: Calvarium and visualized facial bones are intact, without suspicious lesions. Sinuses: Visualized sinuses and mastoids are clear except for chronic appearing opacification of the left maxillary sinus. IMPRESSION: No acute disease found. Chronic appearing opacification of the left maxillary sinus. A d efinite source of generalized weakness is not found. Reviewed by: Srinivas Barkley MD on 12/18/2021 12:07 AM PDT Approved by: Srinivas Barkley MD on 12/18/2021 12:07 AM PDT Station ID: [id number]
--- NOTE | 2021-12-18 08:30 | ED Physician Documentation ---
History of Present Illness - Stated complaint Stated Complaint: R SIDED WEAKNESS - Chief complaint Chief Complaint: Neuro - History obtained from History obtained from: Patient, Family (spouse (in ED at bedside)) - History of Present Illness Timing: Other (weakness x 6 months, worse past 2 days) Pain level max: 0 Pain level now: 0 Improved by: no ameliorating factors Worsened by: no exacerbating factors - Additonal information Additional information: BIBA for weakness. Patient's says patient has been having steadily worsening generalized weakness over past 6 months and past two days have been markedly worse to the point of not being able to stand/ambulate. EMS was called to the house earlier during the day for lift assist, called again tonight initially as lift assist but asked that patient be transported to ED as she says she feels she can no longer take care of him. EMS says patient had right-sided weakness on their evaluation. Neither the patient nor had noticed any unilateral quality of the weakness Review of Systems Constitutional: reports: Reviewed and negative Eyes: reports: Reviewed and negative Ears: reports: Reviewed and negative Throat: reports: Reviewed and negative Cardiac: reports: Reviewed and negative Respiratory: reports: Reviewed and negative GI: reports: Reviewed and negative : reports: Incontinent. denies: Dysuria Skin: reports: Reviewed and negative Musculoskeletal: reports: Reviewed and negative Neurologic: reports: Generalized weakness. denies: Numbness, Difficulty speaking, Headache, Head injury PD PAST MEDICAL HISTORY - Past Medical History Past Medical History: Yes Cardiovascular: Hypertension, High cholesterol, Atrial fibrillation Respiratory: Pneumonia, Shortness of breath, Sleep apnea Endocrine/Autoimmune: Type 2 diabetes : Benign prostate hypertrophy, Incontinence - Past Surgical History Past Surgical History: Yes General: Appendectomy Cardiovascular: Coronary stent - Present Medications Home Medications: Ambulatory Orders Medication Instructions Recorded Confirmed Aspirin 81 mg PO DAILY 07/16/13 12/18/21 Metoprolol Tartrate [Lopressor] 25 mg PO DAILY 07/16/13 12/18/21 Ramipril 10 mg PO BID 07/16/13 12/18/21 hydroCHLOROthiazide 12.5 mg PO DAILY 07/16/13 12/18/21 [Hydrochlorothiazide] Metformin HCl 500 mg PO BID 04/05/15 12/18/21 Ascorbic Acid [Vitamin C] 1,000 mg PO DAILY 12/18/21 12/18/21 Cholecalciferol (Vitamin D3) 25 mcg ORAL DAILY 12/18/21 12/18/21 [Vitamin D3] Clopidogrel [Plavix] 75 mg PO DAILY 12/18/21 12/18/21 Ezetimibe/Rosuvastatin Calcium 1 each PO DAILY 12/18/21 12/18/21 [Rosuvastatin-Ezetimibe 5-10 mg] Glipizide [Glipizide ER] 5 mg PO DAILY 12/18/21 12/18/21 Magnesium 250 mg PO DAILY 12/18/21 12/18/21 Vitamin B Complex 1 each PO DAILY 12/18/21 12/18/21 - Allergies Allergies/Adverse Reactions: Allergies Allergy/AdvReac Type Severity Reaction Status Date / Time No Known Drug Allergies Allergy Verified 10/27/19 13:12 - Social History Does the pt smoke?: No Smoking Status: Never smoker Does the pt have substance abuse?: No PD ED PE NORMAL - Vitals Vital signs reviewed: Yes - General General: No acute distress, Well developed/nourished, Other (AAOx2 ) - HEENT HEENT: PERRL, EOMI, Moist mucous membranes - Neck Neck: Supple, no meningeal sign - Cardiac Cardiac: RRR - Respiratory Respiratory: No respiratory distress, Clear bilaterally - Abdomen Abdomen: Soft, Non tender - Derm Derm: Normal color, Warm and dry - Extremities Extremities: No edema - 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, No motor deficit (mild RUE drift (see NIHSS section)), No sensory deficit, Normal speech Results - Vitals Vitals: Vital Signs - 24 hr 12/17/21 12/17/21 12/18/21 22:15 22:40 00:18 Temperature 36.6 C Heart Rate 89 96 94 Respiratory 17 18 16 Rate Blood Pressure 191/88 H 188/110 H 176/94 H O2 Saturation 96 98 98 12/18/21 12/18/21 12/18/21 02:00 04:26 04:48 Temperature Heart Rate 92 92 93 Respiratory 15 18 18 Rate Blood Pressure 182/118 H 165/99 H 166/95 H O2 Saturation 95 94 93 12/18/21 12/18/21 06:00 08:16 Temperature Heart Rate 73 80 Respiratory 18 16 Rate Blood Pressure 153/93 H 146/81 H O2 Saturation 99 97 Oxygen O2 Source Room air - EKG (time done) No standard instances Rate: Rate (enter#) (94) Rhythm: NSR [place]: Normal Intervals: Normal ME QRS: Normal Ischemia: Normal ST segments, Q waves (V1-V3) Compare to prior EKG: Unchanged from prior EKG - Labs Labs: Laboratory Tests 12/17/21 12/17/21 12/17/21 22:30 22:30 22:30 WBC 9.0 RBC 4.24 L Hgb 12.9 L Hct 38.1 L MCV 89.9 MCH 30.4 MCHC 33.9 RDW 13.5 Plt Count 258 MPV 9.1 Neut # (Auto) 6.8 H Lymph # (Auto) 1.[address] # (Auto) 0.9 Eos # (Auto) 0.1 Baso # (Auto) 0.1 Absolute Nucleated RBC 0.00 Nucleated RBC % 0.0 PT 38.7 H INR 3.5 H APTT Sodium 137 Potassium 4.3 Chloride 100 L Carbon Dioxide 27 Anion Gap 10.0 BUN 30 H Creatinine 1.2 Estimated GFR (MDRD) 57 L Glucose 155 H Calcium 10.0 Total Bilirubin 1.1 H AST 22 ALT 16 Alkaline Phosphatase 61 Troponin I High Sens Total Protein 6.7 Albumin 4.2 Globulin 2.5 Albumin/Globulin Ratio 1.7 Lipase TSH 12/17/21 12/17/21 12/17/21 22:30 22:30 22:30 WBC RBC Hgb Hct MCV MCH MCHC RDW Plt Count MPV Neut # (Auto) Lymph # (Auto) [place] # (Auto) Eos # (Auto) Baso # (Auto) Absolute Nucleated RBC Nucleated RBC % PT INR APTT 42.8 H Sodium Potassium Chloride Carbon Dioxide Anion Gap BUN Creatinine Estimated GFR (MDRD) Glucose Calcium Total Bilirubin AST ALT Alkaline Phosphatase Troponin I High Sens 29.5 H* Total Protein Albumin Globulin Albumin/Globulin Ratio Lipase TSH 1.50 12/17/21 22:30 WBC RBC Hgb Hct MCV MCH MCHC RDW Plt Count MPV Neut # (Auto) Lymph # (Auto) [place] # (Auto) Eos # (Auto) Baso # (Auto) Absolute Nucleated RBC Nucleated RBC % PT INR APTT Sodium Potassium Chloride Carbon Dioxide Anion Gap BUN Creatinine Estimated GFR (MDRD) Glucose Calcium Total Bilirubin AST ALT Alkaline Phosphatase Troponin I High Sens Total Protein Albumin Globulin Albumin/Globulin Ratio Lipase 32 TSH - Rads (name of study) CT head Radiology: Prelim report reviewed, See rad report chest xray Radiology: Prelim report reviewed, See rad report PD MEDICAL DECISION MAKING - ED course Complexity details: reviewed old records, reviewed results, re-evaluated patient, considered differential, d/w patient, d/w family ED course: chief complaint is gradually worsening generalized weakness x 6 months and is requesting placement at this time for patient, as she says she can no longer take care of him herself at home. His mild confusion (says month is January, is off by a few years with his age) is not new, per patient's . He has mild RUE weakness as evidenced by drift on NIHSS exam and he has difficulty touching right finger to his nose but otherwise no lateralizing signs. There is no drug abuse social worker available until Sunday. Care of patient turned over to oncoming ED physician pending disposition - TPA CVA checklist Inclusion crititeria: positive: Sig neuro deficit, CT no bleed. negative: Onset know < 4.5 hr Absolute contraindications: positive: INR >1.7 Relative contraindications: positive: Too mild, On coumadin, Advanced age Absolute contraindications if 3-4.5 hr: positive: Coumadin (any INR), Age > 80 NIHSS - Level of Consciousness Level of consciousness: (0) Alert, Keenly responsive LOC Questions: (2) Answers neither correct LOC Commands: (0) Performs both correctly - Gaze Best Gaze: (0) Normal - Visual Visual: (0) No loss - Facial Palsy Facial Palsy: (0) Normal, symmetrical movement - Motor Arms (both separate) Motor Arm (right): (1) Drift Motor Arm (left): (0) No drift - Motor Legs (both separate) Motor Leg (right): (0) No drift Motor Leg (left): (0) No drift - Limb Ataxia Limb Ataxia: (1) Present in 1 limb - Sensory Sensory: (0) Normal - Best Language Best Language: (0) No aphasia - Dysarthria Dysarthria: (0) Normal - Extinction and Inattention (formally neg Extinction and inattention: (0) No abnormality - Total Score/Results Total Score/Result: 4
[2021-12-18 08:38] LABS: BILIRUBIN,URINE NEGATIVE (NEGATIVE); GLUCOSE, URINE (UA) NEGATIVE (NEGATIVE); KETONES,URINE (UA) NEGATIVE (NEGATIVE); LEUKOCYTE ESTERASE, URINE NEGATIVE (NEGATIVE); NITRITE,URINE NEGATIVE (NEGATIVE); OCCULT BLOOD,URINE NEGATIVE (NEGATIVE); PROTEIN,URINE NEGATIVE (NEGATIVE); UROBILINOGEN,URINE 0.2 (NORMAL) E.U./dL (NORMAL)
[2021-12-18 08:43] LABS: CLARITY,URINE CLEAR (CLEAR)
--- NOTE | 2021-12-18 10:10 | ED Physician Documentation ---
ED Addendum - Addendum Addendum: Patient received in signout from Dr. Browning. Patient has had progressive weakness for several months and is no longer able to care for him at home. He will need social work placement but no social work is available today. In reading the triage note, there was concerns that he had possible new onset right-sided weakness for [address] Browning he does not believe that this is related to a new stroke and more indicative of progressive Weakness. At this time, MRI is not available until Sunday and no Inpatient beds at [facility] are available either.Patient will remain in the emergency department for the time being. On my exam, patient does appear to have more weakness in right upper extremity than left. Leg weakness appears to be symmetric.He is mildly confused. 12/18/21 10:41 I called patient's . She reports that his weakness has been ongoing for several weeks to months including the right arm weakness where he has had difficulty now in feeding himself for several weeks. She called EMS yesterday because she was not able to get him up into his chair which she had normally been able to do. She denies that his weakness is sudden or acute in recent days And has been more of a progressive decline. He is scheduled to meet with a new PCP, on January 11. 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 Home medications ordered for what we have on formulary. No acute events during remainder of shift. Pt remains boarding in ED for Social Work consult in AM.
[2021-12-18] MEDS ORDERED: ASPIRIN CHEW 81 MG TABLET PO STA (13:46)
[2021-12-18] MEDS: metFORMIN 500 MG TABLET PO SCH (21:07)
[2021-12-19] MEDS: metFORMIN 500 MG TABLET PO SCH ×2 (08:40→20:14)
[2021-12-19] MEDS: METOPROLOL TARTRATE 50 MG TABLET PO SCH (08:42)
[2021-12-19] MEDS: hydroCHLOROthiazide 25 MG TABLET PO SCH (08:44)
[2021-12-19] MEDS: CHOLECALCIFEROL 25 MCG TABLET PO SCH (08:44)
[2021-12-19] MEDS: WARFARIN 5 MG TABLET PO SCH (08:51)
[2021-12-19] MEDS ORDERED: WARFARIN 5 MG TABLET PO SCH (14:00)
[2021-12-20] MEDS: METOPROLOL TARTRATE 50 MG TABLET PO SCH (09:32)
[2021-12-20] MEDS: WARFARIN 5 MG TABLET PO SCH (09:32)
[2021-12-20] MEDS: hydroCHLOROthiazide 25 MG TABLET PO SCH (09:32)
[2021-12-20] MEDS: metFORMIN 500 MG TABLET PO SCH ×2 (09:32→21:14)
[2021-12-20] MEDS: CHOLECALCIFEROL 25 MCG TABLET PO SCH (09:32)
[2021-12-21] MEDS: CHOLECALCIFEROL 25 MCG TABLET PO SCH (09:42)
[2021-12-21] MEDS: hydroCHLOROthiazide 25 MG TABLET PO SCH (09:42)
[2021-12-21] MEDS: METOPROLOL TARTRATE 50 MG TABLET PO SCH (09:42)
[2021-12-21] MEDS: metFORMIN 500 MG TABLET PO SCH ×2 (09:42→21:04)
[2021-12-21] MEDS: WARFARIN 5 MG TABLET PO SCH (09:42)
[2021-12-22 11:24] LABS: BASOPHILS # (AUTO) 0.1 10^3/uL (0.0-0.1); BASOPHILS % (AUTO) 0.7 %; EOSINOPHILS # (AUTO) 0.2 10^3/uL (0.0-0.7); HCT - HEMATOCRIT 38.6 % (42.0-52.0); LYMPHOCYTES # (AUTO) 0.9 10^3/uL (1.5-3.5); LYMPHOCYTES % (AUTO) 9.7 %; MEAN CORPUSCULAR HEMOGLOBIN 30.2 pg (27.0-31.0); MEAN CORPUSCULAR HGB CONC 33.7 g/dL (32.0-36.0); MEAN CORPUSCULAR VOLUME 89.8 fL (80.0-94.0); MEAN PLATELET VOLUME 9.1 fL (7.4-11.4); MONOCYTES # (AUTO) 1.2 10^3/uL (0.0-1.0); MONOCYTES % (AUTO) 12.1 %; NEUTROPHILS # (AUTO) 7.3 10^3/uL (1.5-6.6); PLT - PLATELET COUNT 274 10^3/uL (130-450); RED CELL DISTRIBUTION WIDTH 13.4 % (12.0-15.0); WHITE BLOOD COUNT 9.7 x10^3/uL (4.8-10.8)
[2021-12-22 11:37] LABS: ALBUMIN 3.8 g/dL (3.2-5.5); ALBUMIN/GLOBULIN RATIO 1.5 (1.0-2.2); CALCIUM 9.7 mg/dL (8.5-10.3); CREATININE 1.1 mg/dL (0.6-1.2); POTASSIUM 3.9 mmol/L (3.5-5.0); TOTAL PROTEIN 6.4 g/dL (6.7-8.2)
[2021-12-22] MEDS: hydroCHLOROthiazide 25 MG TABLET PO SCH (12:20)
[2021-12-22] MEDS: CHOLECALCIFEROL 25 MCG TABLET PO SCH (12:20)
[2021-12-22] MEDS: metFORMIN 500 MG TABLET PO SCH (12:20)
[2021-12-22] MEDS: METOPROLOL TARTRATE 50 MG TABLET PO SCH (12:20)
[2021-12-22 12:27] LABS: INR 1.3 (0.8-1.2); PT - PROTHROMBIN TIME 14.6 secs (9.9-12.6)
[2021-12-22] MEDS: WARFARIN 5 MG TABLET PO SCH (13:43)
[2021-12-22 14:48] VITALS: BP 136/92
--- NOTE | 2021-12-22 15:49 | ED Physician Documentation ---
ED Addendum - Addendum Addendum: 12/22/21 15:49 He was presumptively excepted to [facility]. Reportedly the PCP called and asked for repeat labs and these were ordered by my partner and done. No substantial changes albeit he is now subtherapeutic on his INR but that can certainly be managed at the alf. Disposition transferred to SNF Condition: Stable Diagnoses: 1. On long-term anticoagulants 2. Weakness
== END 2021-12-22 16:26 | disposition home or self-care (01) ==
LOC: EDUNIT# → ED 22:01
DX: Z02.2 Encounter for examination for admission to residential institution (principal); R53.1 Weakness; I10 Essential (primary) hypertension; I48.91 Unspecified atrial fibrillation; E11.9 Type 2 diabetes mellitus without complications; Z79.84 Long term (current) use of oral hypoglycemic drugs; Z79.01 Long term (current) use of anticoagulants; Z20.822 Contact with and (suspected) exposure to COVID-19
CPT/HCPCS: 36415; 70450; 71046; 80053; 81003; 83690; 84443; 84484; 85025; 85610; 85730; 87635; 93005; 99283; 99284; A9270; 81001; 87086

== ENCOUNTER 2021-12-22 16:26 | Outpatient (CLI) | payer MEDICARE, OTHER | END 2021-12-22 16:27 | LOC: EMS 16:26 | PROVIDERS: ATTEND Emergency Medicine | DX: R53.1 Weakness (principal) | CPT/HCPCS: A0425; A0428 ==

== ENCOUNTER 2021-12-30 08:00 | Outpatient (CLI) | payer MEDICARE, OTHER ==
[2021-12-30 18:15] LABS: BASOPHILS # (AUTO) 0.1 10^3/uL (0.0-0.1); BASOPHILS % (AUTO) 0.7 %; EOSINOPHILS # (AUTO) 0.1 10^3/uL (0.0-0.7); EOSINOPHILS % (AUTO) 1.9 %; HCT - HEMATOCRIT 35.5 % (42.0-52.0); LYMPHOCYTES # (AUTO) 0.9 10^3/uL (1.5-3.5); LYMPHOCYTES % (AUTO) 12.5 %; MEAN CORPUSCULAR HEMOGLOBIN 30.4 pg (27.0-31.0); MEAN CORPUSCULAR HGB CONC 33.8 g/dL (32.0-36.0); MEAN CORPUSCULAR VOLUME 89.9 fL (80.0-94.0); MEAN PLATELET VOLUME 10.2 fL (7.4-11.4); MONOCYTES # (AUTO) 0.7 10^3/uL (0.0-1.0); MONOCYTES % (AUTO) 9.9 %; NEUTROPHILS # (AUTO) 5.4 10^3/uL (1.5-6.6); NEUTROPHILS % (AUTO) 74.3 %; PLT - PLATELET COUNT 258 10^3/uL (130-450); RED BLOOD COUNT 3.95 10^6/uL (4.70-6.10); RED CELL DISTRIBUTION WIDTH 13.1 % (12.0-15.0); WHITE BLOOD COUNT 7.2 x10^3/uL (4.8-10.8)
[2021-12-30 18:31] LABS: ALBUMIN 3.3 g/dL (3.2-5.5); ALBUMIN/GLOBULIN RATIO 1.2 (1.0-2.2); ALKALINE PHOSPHATASE 51 IU/L (42-121); ALT ALANINE AMINOTRANSFERASE 12 IU/L (10-60); AST ASPARTATE AMINOTRANSFERASE 20 IU/L (10-42); BILIRUBIN,TOTAL 0.6 mg/dL (0.2-1.0); BUN - BLOOD UREA NITROGEN 29 mg/dL (6-20); CALCIUM 9.2 mg/dL (8.5-10.3); CARBON DIOXIDE - CO2 22 mmol/L (21-32); CHLORIDE 101 mmol/L (101-111); CHOL/HDL RATIO 3.7 (<5.0); CHOLESTEROL 144 mg/dL; CREATININE 0.9 mg/dL (0.6-1.2); GFR - MDRD 80 (>89); GLUCOSE 174 mg/dL (70-100); HDL CHOLESTEROL 39 mg/dL; LDL CHOLESTEROL,CALCULATED 86 mg/dL; LDL/HDL RATIO 2.2 (<3.6); SODIUM 134 mmol/L (135-145); TRIGLYCERIDES 95 mg/dL; VLDL CHOLESTEROL 19 mg/dL
[2021-12-30 18:44] LABS: THYROID STIMULATING HORMONE 0.7 uIU/mL (0.34-5.60)
[2021-12-30 21:41] LABS: ESTIMATED AVERAGE GLUCOSE 140 mg/dL (70-100); HEMOGLOBIN A1c% 6.5 % (4.27-6.07)
== END 2021-12-30 23:59 | disposition home or self-care (01) ==
LOC: LAB.R 08:00
PROVIDERS: ATTEND Hospitalist
DX: E11.9 Type 2 diabetes mellitus without complications (principal); E78.5 Hyperlipidemia, unspecified; E07.9 Disorder of thyroid, unspecified; Z79.02 Long term (current) use of antithrombotics/antiplatelets
CPT/HCPCS: 80053; 80061; 82607; 83036; 83721; 84443; 85025

== ENCOUNTER 2022-09-02 08:10 | Outpatient (CLI) | payer MEDICARE, OTHER | END 2022-09-02 23:59 | disposition short-term general hospital (02) | LOC: EMS 08:10 | DX: S01.81XA Laceration without foreign body of other part of head, initial encounter (principal); R41.82 Altered mental status, unspecified; R06.89 Other abnormalities of breathing; W06.XXXA Fall from bed, initial encounter; W22.8XXA Striking against or struck by other objects, initial encounter; Y92.003 Bedroom of unspecified non-institutional (private) residence as the place of occurrence of the external cause | CPT/HCPCS: A0425; A0433 ==